=== PATIENT | female | born 1935 | race Caucasian/White ===

== ENCOUNTER 2016-06-16 15:50 | Emergency (ER) | payer MEDICARE, OTHER ==
[2016-06-16 16:05] VITALS: RESP 20; TEMP 96.7
[2016-06-16] MEDS ORDERED: ACETAMINOPHEN 500 MG 500 MG TAB PO ONE (17:13)
[2016-06-16 17:14] VITALS: PULSE 80; O2SAT 99
[2016-06-16] MEDS ORDERED: ACETAMINOPHEN 500 MG 500 MG TAB ONE (17:14)
[2016-06-16] MEDS ORDERED: KETOROLAC TROMETHAMINE 30 MG/ML SOL IV ONE (17:26)
[2016-06-16] MEDS ORDERED: SODIUM CHLORIDE 0.9% FLUSH 10 ML SOL IV PRN (17:26)
[2016-06-16] MEDS ORDERED: KETOROLAC TROMETHAMINE 30 MG/ML SOL ONE (17:27)
[2016-06-16 18:18] VITALS: BP 169/83
== END 2016-06-16 19:00 | disposition home or self-care (01) | DRG 563 ==
LOC: ED 15:50
DX: S42.212A Unspecified displaced fracture of surgical neck of left humerus, initial encounter for closed fracture (principal); M25.552 Pain in left hip; W01.0XXA Fall on same level from slipping, tripping and stumbling without subsequent striking against object, initial encounter
CPT/HCPCS: 73030; 73521; 99285; J1885

== ENCOUNTER 2016-06-26 11:50 | Outpatient (CLI) | payer MEDICARE, OTHER ==
[2016-06-16 17:14] VITALS: O2SAT 99
== END 2016-06-26 11:51 | disposition home or self-care (01) | DRG 560 ==
LOC: CONVCARE 11:50
PROVIDERS: ATTEND Orthopaedic Surgery
DX: S42.212D Unspecified displaced fracture of surgical neck of left humerus, subsequent encounter for fracture with routine healing (principal); I82.432 Acute embolism and thrombosis of left popliteal vein; Z96.651 Presence of right artificial knee joint; R60.9 Edema, unspecified; M25.561 Pain in right knee
CPT/HCPCS: 73030; 73560

== ENCOUNTER 2016-07-10 14:18 | Outpatient (CLI) | payer MEDICARE, OTHER ==
[2016-06-16 17:14] VITALS: O2SAT 99
== END 2016-07-10 14:19 | disposition home or self-care (01) | DRG 561 ==
LOC: CONVCARE 14:18
PROVIDERS: ATTEND Orthopaedic Surgery
DX: S42.212D Unspecified displaced fracture of surgical neck of left humerus, subsequent encounter for fracture with routine healing (principal)
CPT/HCPCS: 73030

== ENCOUNTER 2016-08-14 14:01 | Outpatient (CLI) | payer MEDICARE, OTHER ==
[2016-06-16 17:14] VITALS: O2SAT 99
== END 2016-08-14 14:02 | disposition home or self-care (01) | DRG 561 ==
LOC: CONVCARE 14:01
PROVIDERS: ATTEND Orthopaedic Surgery
DX: S42.292D Other displaced fracture of upper end of left humerus, subsequent encounter for fracture with routine healing (principal)
CPT/HCPCS: 73030

== ENCOUNTER 2016-09-03 21:53 | Emergency (ER) | payer MEDICARE, OTHER ==
[2016-09-03 22:21] VITALS: RESP 16
[2016-09-03] MEDS ORDERED: SODIUM CHLORIDE 0.9% FLUSH 10 ML SOL IV PRN (22:46)
[2016-09-03] MEDS ORDERED: SODIUM CHLORIDE 0.9% 1000ML 1,000 ML IV ONE (23:00)
[2016-09-03] MEDS ORDERED: SODIUM CHLORIDE 0.9% 500 ML 500 ML IV SCH (23:00)
[2016-09-03 23:05] LABS: BASOPHILS % (AUTO) 1 % (0-3); EOSINOPHILS % (AUTO) 3 % (0-9); HEMATOCRIT 38 % (35-47); MEAN CORPUSCULAR HGB CONC 35.4 gm/dl (32.0-36.0); MEAN CORPUSCULAR VOLUME 89 fL (81-99); NEUTROPHILS % (AUTO) 74.5 % (37-80)
[2016-09-03 23:19] LABS: ALBUMIN 3.8 gm/dl (3.4-5.0); CALCIUM 10.3 mg/dl (8.5-10.1)
[2016-09-03 23:52] LABS: APPEARANCE,URINE Clear; BILIRUBIN,URINE NEGATIVE (NEGATIVE); COLOR,URINE Yellow; GLUCOSE, URINE (UA) NEGATIVE (NEGATIVE); KETONES,URINE NEGATIVE (NEGATIVE); LEUKOCYTE ESTERASE ,URINE TRACE (NEGATIVE); NITRATE,URINE NEGATIVE (NEGATIVE); OCCULT BLOOD,URINE TRACE LYSED (NEG-TRACE); UROBILINOGEN,URINE 0.2 (0.2-1.0 EU)
[2016-09-04 00:03] LABS: RBC,URINE 0-1 (0-3AV/HPF)
[2016-09-04] MEDS ORDERED: LOPERAMIDE HYDROCHLORIDE 2 MG CAP PO ONE (00:30)
[2016-09-04] MEDS ORDERED: LOPERAMIDE HYDROCHLORIDE 2 MG CAP ONE (00:31)
[2016-09-04 02:47] VITALS: BP 169/83; PULSE 78; TEMP 99.3; O2SAT 96
== END 2016-09-04 00:54 | disposition home or self-care (01) | DRG 392 ==
LOC: ED 21:53
DX: K52.9 Noninfective gastroenteritis and colitis, unspecified (principal); Z79.01 Long term (current) use of anticoagulants
CPT/HCPCS: 80053; 81001; 85025; 85610; 85730; 87804; 96365; 99284; 99285

== ENCOUNTER 2016-09-11 09:24 | Outpatient (CLI) | payer MEDICARE, OTHER ==
[2016-06-16 17:14] VITALS: O2SAT 99
== END 2016-09-11 09:25 | disposition home or self-care (01) | DRG 561 ==
LOC: RAD 09:24
PROVIDERS: ATTEND Orthopaedic Surgery
DX: S42.202D Unspecified fracture of upper end of left humerus, subsequent encounter for fracture with routine healing (principal)
CPT/HCPCS: 73030

== ENCOUNTER 2016-11-06 10:00 | Outpatient (CLI) | payer MEDICARE, OTHER ==
[2016-09-04 02:47] VITALS: O2SAT 96
== END 2016-11-06 10:01 | disposition home or self-care (01) | DRG 561 ==
LOC: CONVCARE 10:00
PROVIDERS: ATTEND Orthopaedic Surgery
DX: S42.212D Unspecified displaced fracture of surgical neck of left humerus, subsequent encounter for fracture with routine healing (principal)
CPT/HCPCS: 73030

== ENCOUNTER 2018-11-19 21:24 | Emergency (ER) | payer MEDICARE, OTHER ==
[2018-11-19 21:55] LABS: APPEARANCE,URINE Cloudy; BILIRUBIN,URINE NEGATIVE (NEGATIVE); COLOR,URINE Yellow; GLUCOSE, URINE (UA) NEGATIVE (NEGATIVE); KETONES,URINE NEGATIVE (NEGATIVE); LEUKOCYTE ESTERASE ,URINE 3+ (NEGATIVE); NITRATE,URINE NEGATIVE (NEGATIVE); OCCULT BLOOD,URINE 3+ (NEG-TRACE)
[2018-11-19 22:05] VITALS: BP 149/91; PULSE 87; RESP 18; TEMP 97.9; O2SAT 93
[2018-11-19 22:11] LABS: BACTERIA 1+ (< 1+); CRYSTALS NEGATIVE (0-3 AVE/HPF); RBC,URINE 100-120 (0-3AV/HPF)
[2018-11-19] MEDS ORDERED: PHENAZOPYRIDINE HYDROCHLORID 100 MG TAB PO ONE (22:41)
[2018-11-19] MEDS ORDERED: SULFAMETHOXAZOLE/TRIMETHOPRI 800/160 MG PO ONE (22:41)
[2018-11-19] MEDS ORDERED: SULFAMETHOXAZOLE/TRIMETHOPRI 800/160 MG ONE (22:45)
== END 2018-11-19 23:06 | disposition home or self-care (01) | DRG 690 ==
LOC: ED 21:24
DX: N30.01 Acute cystitis with hematuria (principal)
CPT/HCPCS: 81001; 87088; 99282; A9270-GY